=== PATIENT | male | born 1970 | race Caucasian/White ===

== ENCOUNTER 2020-03-27 23:23 | Emergency (ER) | payer MEDICAID ==
[~2020-03-27] VITALS: Ht 172.7 cm; Wt 103.7 kg
[2020-03-27] MEDS ORDERED: morphine 4 MG/ML inj SYRINge IV ONE (23:40)
[2020-03-27] MEDS ORDERED: ondansetron/PF 4mg/2ml inj IV ONE (23:40)
[2020-03-27 23:48] LABS: CLARITY,URINE CLEAR (Clear); COLOR,URINE YELLOW (Yellow); GLUCOSE, URINE NEGATIVE (Neg); KETONES,URINE NEGATIVE (Neg); LEUKOCYTE ESTERASE ,URINE NEGATIVE (Neg); NITRITES, URINE NEGATIVE (Neg); OCCULT BLOOD,URINE TRACE-INTACT (Neg); PH,URINE 7.5 (4.8-8.0); PROTEIN,URINE TRACE mg/dl (Neg)
[2020-03-27 23:49] LABS: UA COLLECTION TYPE CLN CATCH MIDSTREAM
[2020-03-27 23:57] LABS: BASOPHILS # (AUTO) 0.1 X10'3 (0-0.2); BASOPHILS % (AUTO) 0.8 % (0-1); EOSINOPHILS # (AUTO) 0.1 X10'3 (0-0.9); EOSINOPHILS % (AUTO) 1.1 % (0-6); HEMATOCRIT 40.5 % (42.0-52.0); HEMOGLOBIN 13.5 g/dl (14.0-17.9); LYMPHOCYTES # (AUTO) 1.3 X10'3 (1.1-4.8); LYMPHOCYTES % (AUTO) 12.8 % (21-51); MEAN CORPUSCULAR HEMOGLOBIN 27.8 PG (27.0-31.0); MEAN CORPUSCULAR HGB CONC 33.2 g/dL (33.0-36.5); MEAN CORPUSCULAR VOLUME 83.7 FL (78-98); MONOCYTES # (AUTO) 0.5 X10'3 (0-0.9); MONOCYTES % (AUTO) 4.7 % (2-12); NEUTROPHILS # (AUTO) 8.4 X10'3 (1.8-7.7); NEUTROPHILS % (AUTO) 80.6 % (42-75); PLATELET COUNT 289 X10'3 (140-440); RED BLOOD COUNT 4.84 X10'6 (4.70-6.10); RED CELL DISTRIBUTION WIDTH 15.2 % (11.5-14.5); WHITE BLOOD COUNT 10.5 X10'3 (4.5-11.0)
[2020-03-27 23:58] LABS: BACTERIA,URINE NONE SEEN /HPF (Neg); MUCUS STRANDS FEW /LPF (Neg); SQUAMOUS EPITHELIAL CELL,UR FEW /LPF (FEW); WBC,URINE 0-4 /HPF (0-4)
[2020-03-27 23:59] LABS: CAL OXALATE CRYSTALS 1+ /HPF (NEGATIVE)
[2020-03-28 00:11] LABS: ALANINE AMINOTRANSFERASE 33 U/L (12-78); ALBUMIN 3.8 G/DL (3.4-5.0); ALBUMIN/GLOBULIN RATIO 1.2 (1.1-1.5); ALKALINE PHOSPHATASE 64 IU/L (46-116); ANION GAP 8 (8-16); ASPARTATE AMINO TRANSFERASE 22 U/L (10-37); BILIRUBIN,TOTAL 0.3 MG/DL (0.1-1.0); BLOOD UREA NITROGEN 15 MG/DL (7-18); BUN/CREATININE RATIO 11.6 (5.4-32.0); CALCIUM 8.4 MG/DL (8.5-10.1); CHLORIDE 103 MMOL/L (99-107); CREATININE 1.29 MG/DL (0.60-1.10); GLUCOSE 179 MG/DL (70-104); POTASSIUM 3.8 MMOL/L (3.5-5.1); SODIUM 138 MMOL/L (135-145); TOTAL CARBON DIOXIDE 26.7 MMOL/L (24-32); TOTAL PROTEIN 7.1 G/DL (6.4-8.2); eGFR 59 ML/MIN
[2020-03-28 00:14] LABS: LIPASE 88 U/L (73-393); TROPONIN I < 0.04 NG/ML (0.0-0.05)
--- NOTE | 2020-03-28 00:14 | NUR ---
[facility] in [facility] - 03/28/20 at 0016 by MARGAUX BRIANNAS [employer] CALLED FOR UPDATE- WILL CALL BACK [phone]
--- NOTE | 2020-03-28 00:16 | NUR ---
PT'S -[employer] CALLED FOR UPDATE- WILL LET CAP KNOW & CALL BACK @ [phone]
[2020-03-28] MEDS ORDERED: ketorolac trometh. 30mg/ml inj. IV ONE (00:25)
[2020-03-28] MEDS ORDERED: ONDA8TAB6 PO (00:27)
[2020-03-28] MEDS ORDERED: HYDR-3965 PO (00:27)
[2020-03-28 00:41] VITALS: BP 160/99
== END 2020-03-28 00:44 | disposition home or self-care (01) ==
LOC: ER 23:24
DX: N20.0 Calculus of kidney (principal); Z72.89 Other problems related to lifestyle; Z79.899 Other long term (current) drug therapy
CPT/HCPCS: 36415; 74176; 80053; 81001; 83690; 84484; 85025; 96374; 96375; 99284; J1885; J2270; J2405

== ENCOUNTER 2020-04-25 23:00 | Emergency (ER) | payer MEDICAID ==
[~2020-04-25] VITALS: Ht 175.3 cm; Wt 104.6 kg
[~2020-04-25 23:00] MED LIST: HYDR-3965 PO; ONDA8TAB6 PO
[2020-04-25 23:12] VITALS: BP 148/82
[2020-04-25] MEDS ORDERED: LIDOcaine 1% W/epiNEPHrine 1:200,000 10ml vial IJ ONE (23:30)
[2020-04-25] MEDS ORDERED: TETanus/Pertussis (Acell)/Diphther VAC/PF (Tdap-Adult) 0.5ml syringe IMVAC ONE (23:30)
== END 2020-04-25 23:59 | disposition home or self-care (01) ==
LOC: ER 23:01
DX: S60.352A Superficial foreign body of left thumb, initial encounter (principal); Z79.899 Other long term (current) drug therapy; W45.8XXA Other foreign body or object entering through skin, initial encounter; Y93.89 Activity, other specified; Y92.89 Other specified places as the place of occurrence of the external cause; Y99.8 Other external cause status
CPT/HCPCS: 10120; 90715; 99284